=== PATIENT | male | born 1980 | race American Indian/Alaskan Native ===

== ENCOUNTER 2017-05-27 08:34 | Emergency (ER) | payer SELFPAY ==
[2017-05-27] MEDS: TETRACAINE 0.5% 4 ML OPH LEFT EYE (09:12)
[2017-05-27] MEDS: FLUORESCEIN STRIP LEFT EYE (09:12)
== END 2017-05-27 09:39 | disposition home or self-care (01) ==
LOC: FTE 08:34
DX: S05.02XA Injury of conjunctiva and corneal abrasion without foreign body, left eye, initial encounter (principal); X58.XXXA Exposure to other specified factors, initial encounter; Y92.9 Unspecified place or not applicable
CPT/HCPCS: 99283